=== PATIENT | female | born 1930 | race Caucasian/White ===

== ENCOUNTER → 2020-10-31 | Outpatient (CLI) | payer BC, MEDICARE ==
--- NOTE | 2020-11-01 08:01 | ECHOF ---
Referral Reason:I42.0 Dilated cardiomyopathy MEASUREMENTS -------- HEIGHT: 160.0 cm WEIGHT: 56.7 kg BP: IVSd: 0.7 cm (0.6 - 1.1) LVIDd: 5.3 cm (3.9 - 5.3) LVPWd: 0.8 cm (0.6 - 1.1) IVSs: 1.1 cm LVIDs: 4.5 cm LVPWs: 0.7 cm LA Diam: 3.8 cm (2.7 - 3.8) LAESV Index (A-L): 37.32 ml/m Ao Diam: 3.0 cm (2.0 - 3.7) AV Cusp: 1.3 cm (1.5 - 2.6) LA Diam: 3.8 cm (2.7 - 3.8) MV EXCURSION: 15.792 mm (> 18.000) MV EF SLOPE: 60 mm/s (70 - 150) EPSS: 1.1 cm RAP: 5.00 mmHg RVSP: 40.70 mmHg FINDINGS -------- Sinus rhythm. This was a technically good study. The left ventricle is mildly dilated. Left ventricular wall thickness is normal. Overall left elke tricular systolic function is moderate-severely impaired with, an EF between 30 - 35 %. The right ventricle is normal in size. LA is moderately dilated 34-39 ml/m2 The right atrial size is normal. The aortic valve is trileaflet, and appears structurally normal. No aortic stenosis or regurgitation. Moderate mitral regurgitation is present. Mild tricuspid regurgitation present. There is mild pulmonary hypertension. The right ventricular systolic pressure, as measured by Doppler, is 40.70mmHg. There is no pulmonic regurgitation present. There is no pericardial effusion. CONCLUSIONS -------- 1. The left ventricle is mildly dilated. 2. Left ventricular wall thickness is normal. 3. Overall left ventricular systolic function is moderate-severely impaired with, an EF between 30 - 35 %. 4. The right ventricle is normal in size. 5. LA is moderately dilated 34-39 ml/m2 6. The right atrial size is normal. 7. The aortic valve is trileaflet, and appears structurally normal. No aortic stenosis or regurgitati on. 8. Moderate mitral regurgitation is present. 9. Mild tricuspid regurgitation present. 10. There is mild pulmonary hypertension. 11. The right ventricular systolic pressure, as measured by Doppler, is 40.70mmHg. 12. There is no pulmonic regurgitation present. 13. There is no pericardial effusion. FIRE [employer]OSS: Janie Zamudio RDCS
== END | disposition home or self-care (01) ==
LOC: RADECHMAIN 14:39 → MERGE 14:45
PROVIDERS: ATTEND Nurse Practitioner Family
DX: I80.3 Phlebitis and thrombophlebitis of lower extremities, unspecified (principal); I27.20 Pulmonary hypertension, unspecified; I34.0 Nonrheumatic mitral (valve) insufficiency
CPT/HCPCS: 93306